=== PATIENT | female | born 1990 | race African-American/Black ===

== ENCOUNTER 2021-09-13 07:40 | Day surgery (SDC) | payer OTHER ==
[2021-09-13] MEDS ORDERED: CEFAZOLIN/NS 1gm 1 GM/50 ML BAG ONE (08:08)
[2021-09-13] MEDS ORDERED: Ringers Lactate 1,000 ML IV ONE ×3 (08:08→08:36)
[2021-09-13] MEDS ORDERED: FENTANYL CITR 250 MCG/5 ML ONE (08:25)
[2021-09-13] MEDS ORDERED: MIDAZOLAM HCL 2 MG/2 ML INJ ONE (08:25)
[2021-09-13] MEDS ORDERED: dexAMETHasone 10 MG/ML VIAL ONE (08:25)
[2021-09-13] MEDS ORDERED: propofoL 200 MG/20 ML VIAL IV ONE (08:25)
[2021-09-13] MEDS ORDERED: LIDOCAINE 1% MPF 5 ML VIAL ONE (08:25)
[2021-09-13] MEDS ORDERED: LANO/MINERAL OIL/PETRO 3.5 GM ONE (08:26)
[2021-09-13] MEDS ORDERED: NS 0.9% VIAL 10 ML ONE (08:26)
[2021-09-13] MEDS ORDERED: ONDANSETRON 4 MG/2 ML VIAL ONE (08:26)
[2021-09-13] MEDS ORDERED: VECURONIUM 10 MG/VIAL IV ONE ×2 (08:26→13:55)
[2021-09-13] MEDS ORDERED: SCOPOLAMINE HYDROBROMIDE PATCH TD ONE (08:33)
[2021-09-13] MEDS ORDERED: CEFAZOLIN SODIUM 1 GM/VIAL ONE (08:35)
[2021-09-13] MEDS ORDERED: NS 0.9% VIAL 30 ML ONE (08:35)
[2021-09-13] MEDS ORDERED: LIDOCAINE 1% W/EPI 1:100,000 MDV 20 ML VIAL ONE (08:36)
[2021-09-13] MEDS ORDERED: GENTAMICIN SULF 80 MG/2ML INJ ONE (08:36)
[2021-09-13] MEDS ORDERED: Mastisol Adhesive Liq ONE (08:36)
[2021-09-13] MEDS ORDERED: LABETALOL 20 MG/4ML SYRINGE IV ONE (10:54)
[2021-09-13] MEDS ORDERED: FENTANYL CITR 100 MCG/2 ML ONE ×2 (12:42→14:02)
[2021-09-13] MEDS ORDERED: NEOSTIGMINE 1 MG/ML -5 ML ONE (13:55)
[2021-09-13] MEDS ORDERED: GLYCOPYRROLATE 0.2 MG/ML SYR ONE (13:55)
[2021-09-13] MEDS ORDERED: KETOROLAC 30 MG/ML INJ ONE (13:55)
[2021-09-13] MEDS ORDERED: PROMETHAZINE INJ 25 MG/ML AMP ONE (14:28)
[2021-09-13] MEDS ORDERED: HYDROCODONE/APAP 10/325 TAB ONE (16:42)
[2021-09-13] MEDS ORDERED: CODEINE 30MG/APAP 300MG TAB ONE (16:45)
[2021-09-13 20:27] VITALS: O2SAT 95
[2021-09-13 20:35] VITALS: BP 102/68; TEMP 97.5
--- NOTE | 2021-09-14 01:37 | OP ---
Surgeon: Mahesh Prather MD Preoperative Diagnosis: Breast descent. Postoperative Diagnosis: Breast descent. Procedure Performed: Breast lift. Anesthesia: General. Procedure In Detail: After satisfactory induction of general anesthesia, chest was prepped with Dura Prep, dry sterile drapes applied in usual manner. 5 cm template was used to outline the right and le ft areola. Then, the transverse curvilinear incision was made and the skin was de-epithelialized wit h dermabrader or tenotomy scissors. The right breast was approached first. A transverse incision wa s made with electrocautery. Then, flap was thinned to approximately 1.3 cm and elevated towards the sternum, clavicle, anterior axillary line. Inferior incision was made full thickness and then the in tervening tissue was formed into a cone using 2-0 PDS suture. Straps were elevated at 12 o'clock, 1: 30, and 3 o'clock positions and then the straps were woven in and out pectoralis muscle back to base of the cone, and tied to themselves with 2-0 PDS suture. This was done for 12 o'clock and 1:30 strap s. The 3 o'clock strap was sewn over the sternum at 3 o'clock position with Ethibond 2-0. Wound was carefully stapled shut upside down in a mirror-image manner. We then returned to the right side, ex cised the lateral dog ear. Then brought 10 KIRA on the axilla. Irrigated the wound with antibiotic so lution. Then closed the wound with 3-0 Vicryl subcu, then 3-0 PDS running subcuticular, tied from me dial to lateral and lateral to medial. Tied in the vertical meridian of breast. Left side done in a mirror-image manner and then we sat up the patient. Site for new nipple-areolar complex was marked out. Tissue was cored out with a 5 mm template and then the wound was closed with interrupted 4-0 PD S, followed by 4-0 PDS running subcuticular. Dressing consisted of tincture of benzoin, Steri-Strips , followed by Esmarch, fluffs, and Jagdeep wrap. The amount removed from the right breast was 34 g, left was 58 g. The patient had two [address] with 2-0 silk as well. The patient tolerated procedur e well and returned to recovery. GH/MODL Voice ID: [id number] Report ID: [id number]
== END 2021-09-13 18:11 | disposition home or self-care (01) ==
LOC: OR 07:40
PROVIDERS: ATTEND Specialist
PROC: 0HSV0ZZ Reposition Bilateral Breast, Open Approach (ICD-10-PCS; principal; 2021-09-13 09:00)
DX: N64.81 Ptosis of breast (principal)
CPT/HCPCS: 88305; 19316; J2704; J2550; J1580; J2250; J3010 ×3; J1100; J2710; J0690 ×2; J7120 ×3; J2405